=== PATIENT | female | born 1960 | race Caucasian/White ===

== ENCOUNTER 2019-03-15 16:04 | Day surgery (SDC) | payer OTHER ==
[~2019-03-15] VITALS: Ht 152.4 cm; Wt 70.7 kg
[2019-03-15] VITALS (7 sets, daily range): BP systolic 128–162; BP diastolic 72–89; PULSE 68–82; RESP 18–20; Ht 152.4 cm; Wt 70.7 kg
[~2019-03-15 16:04] MED LIST: ATOR10TA65 PO; LEVO125T7 PO
[2019-03-15] MEDS ORDERED: LACTATED RINGER'S 1,000 ML IV SCH (17:00)
[2019-03-15] MEDS ORDERED: TRAM50TA2 (17:48)
[2019-03-15] MEDS ORDERED: LEVO75TA5 PO (17:48)
[2019-03-15] MEDS ORDERED: SIMV20TA20 PO (17:48)
--- NOTE | 2019-03-15 18:54 | PREAC ---
Date/Time of Note Date/Time of Note DATE: 03/15/19 TIME: 18:50 Anesthesia Eval and Record Evaluation Time Pre-Procedure Interview DATE: 03/15/19 TIME: 18:50 Age 58 Sex female NPO: 8 hrs Preoperative diagnosis Rt first metatarsal Hallux rigidus Planned procedure Rt first metatarsal implant arthroscopy Past Medical History Past Medical History: None Cardio: Dyslipidemia Endo: Hypothyroid GI: Morbid obesity Surgery & Anesthesia Issues No known issue Meds Anticoagulation: No Beta Sissy within 24 hr: No Reason Beta Sissy not given: Pt. not on B-Sissy Reported Medications Tramadol HCl (Tramadol HCl) 50 Mg Tablet 03/15/19 Simvastatin (Simvastatin) 20 Mg Tablet, 1 TAB PO DAILY 03/15/19 Levothyroxine Sodium* (Levothyroxine Sodium*) 75 Mcg Tablet, 1 TAB PO DAILY 03/15/19 Discontinued Reported Medications Atorvastatin Calcium (Atorvastatin Calcium) 10 Mg Tab, PO HS, TAB 01/16/15 Levothyroxine Sodium* (Levothyroxine Sodium*) 125 Mcg Tablet, 125 MCG PO AC BREAKFAST, TAB 01/16/15 Current Medications Lactated Ringer's 1,000 ml @ 25 mls/hr Q24H IV Last administered on 03/15/19at 17:26; Admin Dose 25 MLS/HR; Start 03/15/19 at 17:00 Meds reviewed: Yes Allergies Coded Allergies: No Known Allergy (Unverified , 01/16/15) Allergies Reviewed: Yes Labs/Studies Labs Reviewed: Reviewed by anesthesiologist test: N/A Studies: ECG Pre-procedure Exam Last vitals Vital Signs Date Temp Pulse Resp B/P (MAP) Pulse Ox O2 O2 Flow FiO2 Time Delivery Rate 03/15/19 97.8 82 18 128/72 99 Room Air 17:16 (90) Airway: Adequate mouth opening, Adequate thyromental dist Mallampati: Mallampati II Teeth: Normal Lung: Normal Heart: Normal ASA Physical Status ASA physical status: 3 Emergency: None Planned Anesthetic General/MAC: LMA Planned Pain Management Parenteral pain med, Local by surgeon Pre-operative Attestations Prior to commencing anesthesia and surgery, the patient was re-evaluated, there was verification of: *The patient's identity *The results of appropriate recent lab work and preoperative vital signs *The above evaluation not changing prior to induction *Anesthetic plan, risk benefits, alternative and complications discussed with patient/family; questions answered; patient/family understands, accepts and wishes to proceed. LEE PAGAN MD Mar 15, 2019 18:54
[2019-03-15] MEDS ORDERED: MIDAZOLAM 1 MG/ML 2 ML INJ ONE (18:59)
[2019-03-15] MEDS ORDERED: ETOMIDATE 20 MG INJ ONE (19:00)
[2019-03-15] MEDS ORDERED: POLYMYXIN/BACITRACIN 1L IRRIG ONE (19:26)
[2019-03-15] MEDS ORDERED: DEXAMETHASONE 4 MG/ML 1 ML INJ ONE (19:26)
[2019-03-15] MEDS ORDERED: LIDOCAINE 2% (MDV) 20 ML INJ ONE (19:26)
[2019-03-15] MEDS ORDERED: BUPIVACAINE 0.5% (SDV) 30 ML INJ ONE (19:26)
--- NOTE | 2019-03-15 19:31 | HPN ---
Date/Time of Note Date/Time of Note DATE: 03/15/19 TIME: 19:31 Interval H&P Admission Note Pt. seen H&P reviewed: No system changes DEVEN BOWDEN DPM Mar 15, 2019 19:31
[2019-03-15] MEDS ORDERED: KETOROLAC 30 MG INJ ONE (20:16)
[2019-03-15] MEDS ORDERED: ONDANSETRON 4 MG INJ ONE (20:22)
[2019-03-15] MEDS ORDERED: PROPOFOL 20 ML ONE (20:24)
[2019-03-15] MEDS ORDERED: LIDOCAINE 2% (SDV) 5 ML INJ ONE (20:24)
[2019-03-15] MEDS ORDERED: CEFAZOLIN 1 GM INJ ONE (20:25)
--- NOTE | 2019-03-15 20:32 | SIPON ---
Date/Time of Note Date/Time of Note DATE: 03/15/19 TIME: 20:30 Operative Report Preoperative Diagnosis arthritis right first metatarsal phalangeal joint. Postoperative Diagnosis Arthritis right first metatarsal phalangeal joint. Operation/Procedure Performed Implant arthroplasty right first metatarsal joint Surgeon see signature line producer assistant none Anesthesia: general Estimated blood loss: none Transfusion Required none Specimen none Grafts/Implants none Complications none DEVEN BOWDEN DPM Mar 15, 2019 20:32
--- NOTE | 2019-03-15 20:41 | PAC ---
Date/Time of Note Date/Time of Note DATE: 03/15/19 TIME: 20:38 Post-Anesthesia Notes Post-Anesthesia Note Last documented vital signs Vital Signs Date Temp Pulse Resp B/P (MAP) Pulse Ox O2 O2 Flow FiO2 Time Delivery Rate 03/15/19 97.8 82 18 128/72 99 Room Air 17:16 (90) Activity: WNL Respiratory function: WNL Cardiovascular function: WNL Mental status: Baseline Pain reasonably controlled: Yes Hydration appropriate: Yes Nausea/Vomiting absent: Yes Comments BP:112/56, P:78, Spo2:100%, T:98,8 LEE PAGAN MD Mar 15, 2019 20:41
[2019-03-15] MEDS ORDERED: DIPHENHYDRAMINE 50 MG INJ IV PRN (21:00)
[2019-03-15] MEDS ORDERED: HYDROmorphONE 1 MG/5 ML IV SYRINGE IV PRN ×2 (21:00)
[2019-03-15] MEDS ORDERED: OXYCODONE/ACETAMINOPHEN (5/325) TAB PO PRN (21:00)
[2019-03-15] MEDS ORDERED: ONDANSETRON 4 MG INJ IV PRN (21:00)
[2019-03-15] MEDS ORDERED: FENTAnyl 50 MCG/ML VIAL IV PRN (21:00)
[2019-03-15] MEDS ORDERED: MEPERIDINE 25 MG INJ IV PRN (21:00)
--- NOTE | 2019-03-16 09:12 | OPR ---
DATE OF OPERATION: removal call of Marija SURGEON: [phone]. SURGEON: Deven Segal DPM ANESTHESIOLOGIST: Dr. Duong. PREOPERATIVE DIAGNOSIS: Painful arthritic right first metatarsophalangeal joint. POSTOPERATIVE DIAGNOSIS: Painful arthritic right first metatarsophalangeal joint. OPERATION PERFORMED: Implant arthroplasty, right first metatarsophalangeal joint. DESCRIPTION OF PROCEDURE: The patient was brought into the operating room, placed on the table in a secure supine position. Cardiac monitoring. General anesthesia was utilized for this case. Preoper atively, a total of 10 mL of 0.5% Marcaine plain mixed with 2% lidocaine plain were infiltrated into the right foot in the form of a Bravo block for postop pain management. Upon achieving anesthesia, th e right foot and leg was exsanguinated with an Esmarch bandage and the ankle pneumatic tourniquet was inflated to 250 mmHg. Procedure #1 was then performed, implant arthroplasty, right first metatarsophalangeal joint. A 4 cm dorsal medial incision was placed over the first metatarsophalangeal joint. The incision was then d eepened. The superficial bleeders were cauterized and bovied as necessary. A linear capsulotomy was then performed. The capsule was reflected dorsally and plantarly exposing the hypertrophic medial e minence and bone spurring. The bone spur dorsally was resected. The appropriate instrumentation was utilized to perform the bone cuts of the metatarsal head and the proximal phalanx of the right hallu x to allow for insertion of the implant. The appropriate reamers were utilized for the head of the f irst metatarsal and the base of the proximal phalanx. Once the reamers were utilized the appropriate implant was noted to be size 30 Futura Integra implant. The implant was inserted. Good range of mo tion was noted intraoperatively with good seated implant. The surgical site was irrigated with steri le saline mixed with bacitracin solution. The capsule was closed with 3-0 Vicryl simple interrupted sutures. Subcutaneous tissue was closed with 4-0 Vicryl simple interrupted sutures. The skin edges were reapproximated with a running 3-0 Prolene subcuticular stitch. The dressing consisted of Xerofo rm gauze, 1/4-inch Steri-Strips, tincture of benzoin, 4 x 4 gauze, 4-inch Kerlix roll and 2-inch Cassie n to a semi-compressive dressing. The ankle pneumatic tourniquet was then deflated and immediate hyp eremia to all digits of the right foot was noted instantaneously. No intraoperative complications we re encountered. The patient tolerated the above procedure well, left the OR with vital signs stable and satisfactory. Patient will follow up 1 week postop. Dictated By: DEVEN GARCIA Conf#: [id number] DID#: [id number]
== END 2019-03-15 21:30 | disposition home or self-care (01) ==
LOC: SDS 16:04
PROVIDERS: ATTEND Podiatrist Primary Podiatric Medicine
DX: M20.21 Hallux rigidus, right foot (principal); M25.571 Pain in right ankle and joints of right foot; E03.9 Hypothyroidism, unspecified; E78.5 Hyperlipidemia, unspecified
CPT/HCPCS: 28291; J0690; J1100; J2250; J2405; J3010; Z7512; Z7610; J1885

== ENCOUNTER 2019-05-10 07:55 | Day surgery (SDC) | payer OTHER ==
[~2019-05-10] VITALS: Ht 149.9 cm; Wt 72.2 kg
[2019-05-10] VITALS (15 sets, daily range): BP systolic 104–129; BP diastolic 55–67; PULSE 62–88; RESP 12–22; Ht 149.9 cm; Wt 72.2 kg
[~2019-05-10 07:55] MED LIST changes: -ATOR10TA65 PO; +CEFAZOLIN 2 GM/50 ML (PMX) 50 ML IVPB ONE; -LEVO125T7 PO; +LEVO75TA5 PO; +SIMV20TA20 PO; +SOD CHLORIDE 0.9% 1,000 ML IV SCH; +TRAM50TA2
[2019-05-10] MEDS ORDERED: ACETAMINOPHEN 500 MG TAB PO ONE (10:00)
[2019-05-10] MEDS ORDERED: DEXAMETHASONE 4 MG/ML 5 ML INJ ONE (10:12)
[2019-05-10] MEDS ORDERED: CEFAZOLIN 1 GM INJ ONE (10:12)
[2019-05-10] MEDS ORDERED: ONDANSETRON 4 MG INJ ONE (10:12)
[2019-05-10] MEDS ORDERED: LIDOCAINE 2% (SDV) 5 ML INJ ONE (10:12)
[2019-05-10] MEDS ORDERED: MIDAZOLAM 1 MG/ML 2 ML INJ ONE (10:12)
[2019-05-10] MEDS ORDERED: PROPOFOL 40 ML ONE (10:12)
[2019-05-10] MEDS ORDERED: SUCCINYLCHOLINE CHLORIDE 100 MG/5 ML SYG IV ONE (10:12)
[2019-05-10] MEDS ORDERED: ROCURONIUM 50 MG INJ ONE (10:12)
[2019-05-10] MEDS ORDERED: FENTAnyl 50 MCG/ML VIAL ONE (10:12)
[2019-05-10] MEDS ORDERED: FAMOTIDINE 20 MG INJ ONE (10:13)
--- NOTE | 2019-05-10 10:26 | PREAC ---
Date/Time of Note Date/Time of Note DATE: 05/10/19 TIME: 10:25 Anesthesia Eval and Record Evaluation Time Pre-Procedure Interview DATE: 05/10/19 TIME: 10:25 Age 58 Sex female NPO: 8 hrs Preoperative diagnosis hemorrhoids Planned procedure hemorrhoidectomy, rigid sigmoidoscopy Past Medical History Past Medical History: Includes Cardio: Dyslipidemia Endo: Hypothyroid Heme: Anemia Surgery & Anesthesia Issues No known issue Meds Anticoagulation: No Beta Sissy within 24 hr: No Reason Beta Sissy not given: Pt. not on B-Sissy Reported Medications Simvastatin (Simvastatin) 20 Mg Tablet, 1 TAB PO DAILY 03/15/19 Levothyroxine Sodium* (Levothyroxine Sodium*) 75 Mcg Tablet, 1 TAB PO DAILY 03/15/19 Discontinued Reported Medications Tramadol HCl (Tramadol HCl) 50 Mg Tablet 03/15/19 Current Medications Sodium Chloride 1,000 ml @ 75 mls/hr [id number] IV Last administered on 05/10/19at 09:22; Admin Dose 75 MLS/HR; Start 05/10/19 at 07:00 Meds reviewed: Yes Allergies Coded Allergies: No Known Allergy (Unverified , 05/10/19) Allergies Reviewed: Yes Labs/Studies Labs Reviewed: Reviewed by anesthesiologist Result Diagram: 05/10/19 0845 05/10/19 0845 Laboratory Tests 05/10/19 08:45 test: N/A Pre-procedure Exam Last vitals Vital Signs Date Temp Pulse Resp B/P (MAP) Pulse Ox O2 O2 Flow FiO2 Time Delivery Rate 05/10/19 97.3 62 16 129/67 97 09:33 (87) Airway: Adequate mouth opening, Adequate thyromental dist Mallampati: Mallampati II Teeth: Normal Lung: Normal Heart: Normal ASA Physical Status ASA physical status: 2 Emergency: None Planned Anesthetic General/MAC: ETT Pre-operative Attestations Prior to commencing anesthesia and surgery, the patient was re-evaluated, there was verification of: *The patient's identity *The results of appropriate recent lab work and preoperative vital signs *The above evaluation not changing prior to induction *Anesthetic plan, risk benefits, alternative and complications discussed with patient/family; questions answered; patient/family understands, accepts and wishes to proceed. Surg Nurse used MERCEDES BALTAZAR May 10, 2019 10:26
[2019-05-10] MEDS ORDERED: HYDROmorphONE 1 MG/5 ML IV SYRINGE IV PRN ×3 (10:30)
[2019-05-10] MEDS ORDERED: MEPERIDINE 25 MG INJ IV PRN (10:30)
[2019-05-10] MEDS ORDERED: FENTAnyl 50 MCG/ML VIAL IV PRN ×2 (10:30)
[2019-05-10] MEDS ORDERED: ALBUTEROL 0.083% (NEB) 2.5 MG/3 ML AMP HHN PRN (10:30)
[2019-05-10] MEDS ORDERED: morphine 2 MG INJ IV PRN ×3 (10:30→14:00)
[2019-05-10] MEDS ORDERED: EPHEDrine 25 MG/5 ML SYG IV PRN (10:30)
[2019-05-10] MEDS ORDERED: DIPHENHYDRAMINE 50 MG INJ IV PRN (10:30)
[2019-05-10] MEDS ORDERED: ONDANSETRON 4 MG INJ IV PRN (10:30)
[2019-05-10] MEDS ORDERED: OXYCODONE/ACETAMINOPHEN (5/325) TAB PO PRN ×2 (10:30)
[2019-05-10] MEDS ORDERED: hydrALAzine 20 MG INJ IV PRN (10:30)
[2019-05-10] MEDS ORDERED: LABETALOL HCL 20MG INJ IV PRN (10:30)
[2019-05-10] MEDS ORDERED: BUPIVACAINE 0.25%/EPI (SDV) 10 ML INJ ONE (11:03)
[2019-05-10] MEDS ORDERED: LIDOCAINE 1% (MPF) 30 ML INJ ONE (11:03)
[2019-05-10] MEDS ORDERED: GENTAMICIN 80 MG INJ ONE (11:52)
[2019-05-10] MEDS ORDERED: PHENYLephrine (100 MCG/ML) 10ML SYG ONE ×2 (12:03→12:24)
[2019-05-10] MEDS ORDERED: SILVER SULFADIAZINE 1% 25 GM CR ONE (12:55)
[2019-05-10] MEDS ORDERED: SUGAMMADEX SODIUM 200 MG/2 ML VIAL IV ONE (12:55)
[2019-05-10] MEDS ORDERED: KETOROLAC 30 MG INJ ONE (13:01)
[2019-05-10] MEDS ORDERED: PROVENTIL HFA 6.7GM INHALER ONE (13:06)
--- NOTE | 2019-05-10 13:24 | PAC ---
Date/Time of Note Date/Time of Note DATE: 05/10/19 TIME: 13:24 Post-Anesthesia Notes Post-Anesthesia Note Last documented vital signs Vital Signs Date Temp Pulse Resp B/P (MAP) Pulse Ox O2 O2 Flow FiO2 Time Delivery Rate 05/10/19 97.3 62 16 129/67 97 09:33 (87) Activity: WNL Respiratory function: WNL Cardiovascular function: WNL Mental status: Baseline Pain reasonably controlled: Yes Hydration appropriate: Yes Nausea/Vomiting absent: Yes MERCEDES BALTAZAR May 10, 2019 13:24
[2019-05-10] MEDS ORDERED: LACTATED RINGER'S 1,000 ML IV SCH (13:31)
--- NOTE | 2019-05-10 13:54 | SIPON ---
Date/Time of Note Date/Time of Note DATE: 05/10/19 TIME: 13:41 Operative Report Preoperative Diagnosis Internal hemorrhoids and bleeding. Postoperative Diagnosis 1 internal and external hemorrhoid grade 3 at 6 o'clock position External hemorrhoid at 3:00. Internal hemorrhoids grade 1 and 2 at 12:00 lithotomy position and 11:00 and 9:00 and 7:00. Operation/Procedure Performed 1 internal and external hemorrhoidectomy at 6 o'clock position. External hemorrhoidectomy at 3 o'clock position. Ligation of the pedicles of the internal hemorrhoid at 7:00 9:00 and 11 o'clock position. At 3 o'clock position prophylactic for prevention of acute seizure. Injection of mixture of local anesthesia lidocaine 1% with epinephrine plus quarter percent Marcaine with epinephrine. Surgeon see signature line support assistant None Anesthesia: general, other (Local) Estimated blood loss: 10 - 50 ml's Transfusion Required none Specimen 2 pieces of the specimen was sent for pathology evaluation. Grafts/Implants none Complications none VALORIE MILLER MD May 10, 2019 13:52
[2019-05-10] MEDS ORDERED: HYDROCODONE/APAP (5/325) TAB PO PRN ×2 (14:00)
--- NOTE | 2019-05-10 17:18 | RADRPT ---
Vent Rate: 59 bpm RR Interval: 1020 msec DC Interval: 138 msec QRS Duration: 83 msec QT Interval: 431 msec QTC Interval: 427 msec P-R-T [place]: 31 - -2 - 2 degrees Sinus rhythm...normal P axis, V-rate 50- 99 Electronically Signed By: Siva Traore
--- NOTE | 2019-05-12 20:31 | OPR ---
DATE OF OPERATION: 05/10/2019 SURGEON: Kam Mcgarry MD PREOPERATIVE DIAGNOSIS: Internal hemorrhoids anorectal bleeding. POSTOPERATIVE DIAGNOSES: 1. Internal and external hemorrhoids, grade III at 6 o'clock position. 2. External hemorrhoid at 3 o'clock position. 3. Internal hemorrhoids, grade I and II at 12 o'clock lithotomy position and also at 7, 9 and 11 o'clock lithotomy position. OPERATION PERFORMED: 1. Internal and external hemorrhoidectomy at 6 o'clock position. 2. External hemorrhoidectomy at 3 o'clock position. 3. Ligation of the hemorrhoidal plexus pedicle at 7, 9 and 11 o'clock position. 4. Prophylactic partial lateral internal sphincterotomy at 3 o'clock position. 5. Rigid sigmoidoscopy up to 25 cm. ANESTHESIA: General and local. ANESTHESIOLOGIST: Kim WHITE. INDICATION: This is a 58-year-old female who presented to surgical clinic complaining of presence of hemorrhoids for a long time and on and off has been having bleeding per rectum. Actually, she had colonoscopy in this hospital a while ago and she was told that she also has hemorrhoids and that is how she was aware of the presence of hemorrhoids plus evidence of bleeding. In any case, the patient was seen and evaluated and she requested surgical intervention, the risk and benefits of operation, possible complications including but not limited to: 1. Recurrence of the hemorrhoidal tissues in future. 2. Stenosis of the anal verge area due to overgrowth of the fibrous tissues, chronic pain in the anal area at the time of defecation,or even at rest. possible damage to the cy external sphincter mechanism possible infection, and possible need for further operation. The patient understood and accepted and signed the consent and was admitted for operation. DESCRIPTION OF PROCEDURE: The patient was brought to the operating room, placed on operating table in supine position. Anesthesia was induced by the anesthesiologist. Then, position of the patient was changed to lithotomy position and the patient's legs were placed on the Loco stirrups. Prep with Betadine and drape in a sterile fashion was performed. Time-out was called. The patient identified, site of operation and concerns was discussed among the team. Two gram of Ancef antibiotic, IV was given to the patient by the anesthesiologist, also 80 mg of gentamicin IV was given to the patient by the anesthesiologist. At this time, the rigid sigmoidoscopy was performed up to 25 cm and no mass or any other mucosal pathology was identified except some degree of internal hemorrhoids. Then, hemorrhoidal retractors were applied inside the anal canal and dilatation was performed and inspection was performed. The finding was the presence of grade I and II hemorrhoidal plexus at 7 and 9 and 11 o'clock at lithotomy position and also there was an internal and external hemorrhoid in continuity at 6 o'clock position. All through the operation, a mixture of 0.25% Marcaine with epinephrine 30 mL plus 30 mL of 1% lidocaine with epinephrine was used for local anesthesia. First, the pedicle of the hemorrhoid plexus at 6 o'clock was suture ligated [id number] with 2-0 chromic. Then, using Park technique, the hemorrhoidal pocket at 6 o'clock was excised using Bovie electrocautery and eventually the end of the pedicle was discontinued with electrocautery and more suture was applied at this area, approximation of the mucosa was performed. The specimen was from anoderm and was sent for pathologic evaluation. The remaining of the wound was left open. Then the pedicle of the hemorrhoidal plexus at 7 and 9 and 11 o'clock position was suture ligated with 2-0 chromic. The remaining of the internal hemorrhoidal tissue was not removed and was left to be gradually get thrombosed and be taken care of by the course of the healing. Then, to prevent acute fissure formation which sometimes occurs,prophylactically partial lateral internal sphincterotomy at 3 o'clock position in lithotomy was performed. At the end of the procedure, inspection of the anorectal canal revealed that there was no evidence of bleeding. More local anesthetic was injected for postop analgesia. Then, position of the patient was changed by bringing down the legs from the stirrup to the flat position. The patient was extubated by the anesthesiologist in stable condition, transferred to the recovery room.The needle and sponge and instrument count were reported to be correct times 2 ESTIMATED BLOOD LOSS: 30 mL. SPECIMEN: Two pieces of the hemorrhoidal tissue was sent for pathologic evaluation. Dictated By: KAM DONALDSON/RADHA Conf#: [id number] DID#: [id number] SHANNAN
== END 2019-05-10 15:45 | disposition home or self-care (01) ==
LOC: SDS 07:55
DX: K64.2 Third degree hemorrhoids (principal); K64.9 Unspecified hemorrhoids; E78.5 Hyperlipidemia, unspecified; E03.9 Hypothyroidism, unspecified; E78.00 Pure hypercholesterolemia, unspecified
CPT/HCPCS: 46250; 46946; 71045; 80048; 85025; 85610; 85730; 88304; 93005; J0690; J1100; J1580; J1885; J2250; J2370; J2405; J3010; Z7512; Z7610